=== PATIENT | male | born 2000 | race Caucasian/White ===

== ENCOUNTER 2021-12-29 20:27 | Observation (INO) ==
[2021-12-29 21:06] LABS: Basophils # (auto) 0.04 K/uL (0-0.2); Basophils % (auto) 0.3 %; Eosinophils # (auto) 0.04 K/uL (0-0.50); Eosinophils % (auto) 0.3 %; Hematocrit (blood only) 45.2 % (40.1-51.0); Hemoglobin 15.7 g/dl (14.0-18.0); Immature Granulocytes # (auto) 0.05 K/uL (0.00-0.02); Immature Granulocytes % (auto) 0.3 %; Lymphocytes # (auto) 2.24 K/uL (1.2-3.4); Lymphocytes % (auto) 14.2 %; Mean Corpuscular Hemoglobin 30.2 pg (25.0-34.0); Mean Corpuscular Hgb Conc 34.7 g/dL (32.0-36.0); Mean Corpuscular Volume 86.9 fL (80.0-100.0); Mean Platelet Volume 10.6 fL (9.4-12.4); Monocytes % (auto) 5.7 %; Neutrophils # (auto) 12.51 K/uL (1.4-6.5); Neutrophils % (auto) 79.2 %; Platelet Count 235 K/uL (130-400); RDW Coefficient of Variation 12.8 % (11.5-14.5); RDW Standard Deviation 40.6 fL (36.4-46.3); White Blood Count 15.78 K/ul (4.8-10.8)
[2021-12-29 21:32] LABS: Albumin Globulin Ratio 1.9 (0.9-2); Albumin Level 4.9 gm/dl (3.4-5.0); BUN Creatinine Ratio 13.2 (10-20); Bilirubin,Total 0.5 mg/dl (0.2-1.0); Calcium 9.8 mg/dl (8.5-10.1); Creatinine Clr Calc Pharmacy 129.3 ml/min; Est GFR (African American) 138.2 ml/min; Est GFR (Non-African American) 119.2 ml/min; Globulin 2.6 gm/dl (2.5-4.0); Potassium 3.5 mmol/L (3.5-5.1); Total Protein 7.5 gm/dl (6.0-8.3)
[2021-12-29 21:43] LABS: Appearance Urine Clear (Clear); Bilirubin Urine Negative (Negative); Blood Urine Negative (Negative); Color Urine Yellow; Glucose Urine UA Negative (Negative); Ketones Urine 2+ (Negative); Leukocyte Esterase Urine Negative (Negative); Nitrite Urine Negative (Negative); Protein Urine Negative (Negative); Specific Gravity Urine 1.025 (1.000-1.030); Urobilinogen Urine Negative (Negative); pH Urine 5.5 (4.5-7.5)
[2021-12-29] MEDS ORDERED: ONDANSETRON INJ 2 MG/ML 2 ML VIAL IV STA (22:57)
[2021-12-29] MEDS ORDERED: cefTRIAXone SODIUM 1,000 MG/50 ML BAG IV STA (22:57)
[2021-12-29] MEDS ORDERED: SODIUM CHLORIDE 0.9% 1000ML 1,000 ML IV ONE (22:57)
[2021-12-29] MEDS ORDERED: fentaNYL citrate 100 MCG/2 ML VIAL IV STA (22:57)
--- NOTE | 2021-12-29 23:01 | Emergency Department Note ---
History of Present Illness General Chief complaint: Abdominal Pain Stated complaint: ABDOM PAIN Time Seen by Provider: 12/29/21 22:50 History of Present Illness Maximum Pain Intensity: 8 21-year-old male presents emergency department with a 7-hour history of periumbilical abdominal pain now radiating to the right lower quadrant; patient rates the pain 5 out of 10 there is no flank pain there is no urinary symptoms there is no testicular pain. Patient denies fever anorexia. Patient denies any intra-abdominal surgeries. There are no other mitigating or alleviating factors. Home Medications Medication Instructions Recorded Confirmed Type Acetamin/Codeine (Tylenol 5 ml PO Q6H #200 mL 10/19/08 Rx W/Codeine 120/12MG 5ML *) None (Patient States No Home Meds) ##0 10/19/08 History Allergies Allergy/AdvReac Type Severity Reaction Status Date / Time No Known Allergies Allergy Unverified 12/29/21 23:06 Past Med/Surg History Social History Smoking Status: Never smoker Preferred Language: Hong Konger Feels Safe at Home: Yes Immunizations: Past medical history denies; past surgical history denies Review of Systems A total of 10 systems reviewed and were otherwise negative Constitutional: no fever Respiratory: no cough Gastrointestinal: + abdominal pain and + vomiting Genitourinary (Male): no dysuria Physical Exam Vital Signs Vital Signs - 24 hr 12/29/21 20:31 12/29/21 22:55 12/29/21 23:49 Temperature 36.3 C L Temperature Source Temporal Artery Scan Pulse Rate 81 Pulse Rate [Apical] 85 75 Respiratory Rate 18 18 18 Respiratory Effort / Characteristics Non-Labored Spontaneous Non-Labored Respiratory Depth Normal Normal Respiratory Pattern Regular Blood Pressure 133/80 Blood Pressure [Left Arm] 131/76 134/72 Blood Pressure Mean 97 Blood Pressure Mean [Left Arm] 94 92 Blood Pressure Position Sitting Pulse Oximetry 98 99 99 Oxygen Delivery Method Room Air Room Air Room Air Sepsis Recent Fever Within 48 Hours No Sepsis New/Unexplained Change in Mental Status N/A Sepsis Action Taken by Nursing No Action Required 12/30/21 00:35 Temperature Temperature Source Pulse Rate Pulse Rate [Apical] 78 Respiratory Rate 16 Respiratory Effort / Characteristics Non-Labored Respiratory Depth Respiratory Pattern Blood Pressure Blood Pressure [Left Arm] 120/68 Blood Pressure Mean Blood Pressure Mean [Left Arm] 85 Blood Pressure Position Pulse Oximetry 98 Oxygen Delivery Method Room Air Sepsis Recent Fever Within 48 Hours Sepsis New/Unexplained Change in Mental Status Sepsis Action Taken by Nursing VITAL SIGNS - Vital signs and nursing notes were reviewed. GENERAL - no acute distress. Communicates well with provider and answers questions appropriately. SKIN - Without rashes. HEAD - NC/AT. EYES - PERRL with EOMI bilaterally. Sclera anicteric. Palpebral conjunctiva pink and moist with no injection noted. EARS - No deformities of external structures noted on gross examination bilaterally. . NOSE - Midline and without cyanosis. No epistaxis or purulent drainage noted. Septum midline without deviation or septal hematoma noted. MOUTH/OROPHARYNX - Without perioral cyanosis. Buccal mucosa pink and moist NECK - Neck with FROM. Supple to palpation. LUNGS - Chest wall symmetric without accessory muscle use, intercostals retractions, or central cyanosis. Normal vesicular breath sounds CTA B/L. No w heezes, rales, or rhonchi appreciated. CARDIAC - RRR with S1/S2. No murmur, rubs, or gallops appreciated. ABDOMEN - Abdominal contour soft without pulsations or visible masses. BS normoactive all four quadrants. Tenderness right lower quadrant there is no rebound rigidity or guarding. EXTREMITIES - No clubbing or peripheral cyanosis. No pretibial edema present. +5/5 strength noted in UE/LE bilaterally. NEUROLOGIC - Cranial nerves II through XII grossly intact. PSYCH - A&Ox3 and cooperates fully with examiner. Pt is very pleasant and interacts well with examiner. Course Reevaluation(s) Reevaluation #1: Patient started on IV fluids IV pain medicine IV antibiotics. Patient complained of increased pain. Case will be discussed with the surgical team as the patient has early appendicitis Time: 00:44 Consultations Consultation #1: Surgery - CONNIE Amado Time: 00:45 Administered Medications Discontinued Medications Fentanyl Citrate (Fentanyl Citrate 100 Mcg/2 Ml Vial) 50 mcg IV NOW STA Stop: 12/29/21 22:58 Last Admin: 12/29/21 23:02 Dose: 50 mcg Documented By: CHARITO Fentanyl Citrate (Fentanyl Citrate 100 Mcg/2 Ml Vial) 50 mcg IV NOW STA Stop: 12/30/21 00:22 Last Admin: 12/30/21 00:36 Dose: 50 mcg Documented By: CHARITO Sodium Chloride (Nss 1000ml) 1,000 mls @ 999 mls/hr IV .Q1H1M ONE Stop: 12/29/21 23:57 Last Infusion: 12/30/21 00:04 Dose: 0 mls/hr Documented By: Admin: 12/29/21 23:02 Dose: 999 mls/hr Documented By: CHARITO Ceftriaxone Sodium (Rocephin) 1,000 mg in 50 mls @ 100 mls/hr IV NOW STA Stop: 12/29/21 23:26 Last Infusion: 12/30/21 00:20 Dose: 0 mls/hr Documented By: Admin: 12/29/21 23:50 Dose: 100 mls/hr Documented By: CHARITO Ioversol (Optiray 300 100ml) 100 ml IV ONCE ONE Stop: 12/29/21 23:48 Last Admin: 12/29/21 23:47 Dose: 100 ml Documented By: JENNY Ondansetron HCl (Ondansetron Inj 2 Mg/Ml 2 Ml Vial) 4 mg IV NOW STA Stop: 12/29/21 22:58 Last Admin: 12/29/21 23:02 Dose: 4 mg Documented By: CHARITO Medical Decision Making Medical Records Attestation: I reviewed the patient's medical records. Home Medications Current Medication List: was personally reviewed by me Laboratory Data Attestation: I reviewed the patient's lab results. Result diagrams: 12/29/21 20:55 12/29/21 20:55 Lab Results 12/29/21 12/29/21 12/29/21 Range/Units 20:55 20:55 20:55 WBC 15.78 H (4.8-10.8) K/ul RBC 5.20 (4.63-6.08) M/uL Hgb 15.7 (14.0-18.0) g/dl Hct 45.2 (40.1-51.0) % MCV 86.9 (80.0-100.0) fL MCH 30.2 (25.0-34.0) pg MCHC 34.7 (32.0-36.0) g/dL RDW Std Deviation 40.6 (36.4-46.3) fL RDW Coeff of Isha 12.8 (11.5-14.5) % Plt Count 235 (130-400) K/uL MPV 10.6 (9.4-12.4) fL Immature Gran % (Auto) 0.3 % Neut % (Auto) 79.2 % Lymph % (Auto) 14.2 % Price % (Auto) 5.7 % Eos % (Auto) 0.3 % Baso % (Auto) 0.3 % Neut # (Auto) 12.51 H (1.4-6.5) K/uL Lymph # (Auto) 2.24 (1.2-3.4) K/uL Price # (Auto) 0.90 H (0.24-0.82) K/uL Eos # (Auto) 0.04 (0-0.50) K/uL Baso # (Auto) 0.04 (0-0.2) K/uL Immature Gran # (Auto) 0.05 H (0.00-0.02) K/uL Sodium 139 (136-145) mmol/L Potassium 3.5 (3.5-5.1) mmol/L Chloride 104 (98-107) mmol/L Carbon Dioxide 23 (21-32) mmol/L Anion Gap 12 H (3-11) BUN 12 (6-23) mg/dl Creatinine 0.91 (0.6-1.4) mg/dl Est Cr Clr Drug Dosing 129.3 ml/min Est GFR ( Amer) 138.2 ml/min Est GFR (Non-Af Amer) 119.2 ml/min BUN/Creatinine Ratio 13.2 (10-20) Glucose 101 H (70-99(Fasting)) mg/dl Calcium 9.8 (8.5-10.1) mg/dl Total Bilirubin 0.5 (0.2-1.0) mg/dl AST 16 (13-39) U/L ALT 16 (7-52) U/L Alkaline Phosphatase 76 (34-104) U/L Total Protein 7.5 (6.0-8.3) gm/dl Albumin 4.9 (3.4-5.0) gm/dl Globulin 2.6 (2.5-4.0) gm/dl Albumin/Globulin Ratio 1.9 (0.9-2) Lipase 8 L (11-82) U/L Urine Color Yellow Urine Appearance Clear (Clear) Urine pH 5.5 (4.5-7.5) Ur Specific [place] 1.025 (1.000-1.030) Urine Protein Negative (Negative) Urine Glucose (UA) Negative (Negative) Urine Ketones 2+ H (Negative) Urine Blood Negative (Negative) Urine Nitrite Negative (Negative) Urine Bilirubin Negative (Negative) Urine Urobilinogen Negative (Negative) Ur Leukocyte Esterase Negative (Negative) Imaging Data Radiologist's Impression: * Patient: ANA BLACK (Male) : 89 Status: ER Date: 12/29/21 23:50 Room #: History: PAIN AT RLQ Slices: [id number] Priors: Tech: Adithya Streeter @ [phone] Exams: CT ABDOMEN & PELVIS With Contrast Contrast: IV Amt: 93 ML OPTIRAY 300 Accession Numbers: [id number] Referring Physician: REFERRED SELF Preliminary Findings Only See Final Report For Complete Findings CT ABDOMEN & PELVIS With Contrast: The appendix measures 10 mm with slight surrounding fat stranding consistent with mild early acute appendicitis. No signs of rupture or abscess. Bowel loops are otherwise un remarkable. The liver, gallbladder, pancreas, spleen, adrenal glands, and kidneys are unremarkable. Skeletal structures are normal. Radiologist: Frank Sesay MD Study ready at 23:58 and initial results transmitted at 00:40 Communications: Clear Time Type Notes Call Doctor Appen [id number] AM10 days left MDM Narrative Call decision making differential diagnosis includes appendicitis gastritis gastroenteritis colitis urinary tract infection. Plan is to check labs, CT, giv e IV fluids pain medicine antibiotics Impression & Plan Acute appendicitis Discharge Plan Visit Data Chief Complaint: Abdominal Pain Stated Complaint: ABDOM PAIN ED Provider: Harlan Holt Discharge Problem: Acute appendicitis Patient Disposition: Being Evaluated by Surgeon Forms Stand Alone Forms: [employer] Prescriptions Prescriptions: No Action None (Patient States No Home Meds) . Qty: 0 Acetamin/Codeine (Tylenol W/Codeine 120/12MG 5ML *) solution 5 ml PO Q6H Qty: 200 0RF Rx Instructions: PRN PAIN Referrals Referrals: PCP,NO [Physician] -
[2021-12-29] MEDS ORDERED: OPTIRAY 300 100mL IV ONE (23:47)
[2021-12-30] MEDS ORDERED: fentaNYL citrate 100 MCG/2 ML VIAL IV STA (00:21)
--- NOTE | 2021-12-30 00:57 | History & Physical Report ---
Date of Service December 30, 2021 Assessment & Plan (1) Acute appendicitis: Plan: Due to the patient's labs, imaging, clinical presentation we will proceed as follows: We will implement n.p.o. status Provide analgesics Provide antiemetics Provide hydration with IV fluids We will continue antibiotics in the form of cefoxitin We will tentatively plan for laparoscopic, possible open appendectomy Dr. Herrera on 12/30/2021. I discussed the procedure with the patient and expected postoperative course. Patient wishes to proceed. Additional recommendations be forthcoming based on operative findings and patient's postoperative course. Will use SCDs for DVT prevention, no chemical means due to planned surgery He will be a level 1 full code History of Present Illness Chief Complaint: Abdominal pain Primary Care Provider: Sunday Rodriguez MD This is a 21-year-old male who presented to the emergency department secondary to abdominal pain. Patient says that the pain began at approximate 5:00 PM on 12/29/2021 and was periumbilical. He notes that the pain is since shifted to the right lower quadrant. He has had associated nausea and vomiting. He denies any fevers. Patient notes that the pain does not radiate and he notes it is worse with certain movements and has been somewhat alleviated by medicines administered in the emergency department. Patient notes that he has never had any abdominal surgeries before and he denies any other health problems. In the emergency department patient had labs and imaging which independent reviewed. A CT scan of the abdomen pelvis showed that the appendix patient's appendix measured approximately 10 mm with some periappendiceal fat stranding concerning for acute appendicitis. There is no evidence of rupture or abscess. Labs included a CBC were white blood cell count was 15.7. Hemoglobin, hematocrit, platelet count were normal. Chemistry profile showed sodium, potassium, BUN, and creatinine were normal. There is no elevation of LFTs or lipase. Urinalysis was not indicative of infection. Patient has received a total of 100 mcg of fentanyl and Rocephin in the emergency department and has noted some improvement of his pain. Concerning other medical problems the patient denies any health problems. He also denies any prior surgeries. He denies any allergies to medicines. He is a non-smoker. At the time my exam he was in no distress. Allergies Allergy/AdvReac Type Severity Reaction Status Date / Time No Known Allergies Allergy Unverified 12/30/21 09:22 Home Medications Medication Instructions Recorded Confirmed Type Acetamin/Codeine (Tylenol 5 ml PO Q6H #200 mL 10/19/08 Rx W/Codeine 120/12MG 5ML *) None (Patient States No Home Meds) ##0 10/19/08 History Past Med/Surg History Surgical History (Updated 12/30/21 @ 09:24 by Dorcas Soares RN) History of arthroplasty of left ankle for "floppy foot and pain"- September 2021 [place] teeth extracted Social History Smoking Status: Never smoker Hx Alcohol Use: Yes Alcohol type: wine Hx Substance Use: No Preferred Language: Upper Sorbian Communication Ability: Effective Air Sampler Required: No Beliefs That Will Affect Care: None Current Living Situation: Family Other Information That Helps Us Care for You: No Feels Safe at Home: Yes Safety Concerns: Feels Safe At This Time Assistive Devices: Glasses Review of Systems Constitutional: no fever and no chills Eyes: no eye pain Ear, Nose, Mouth, Throat: no ear pain Respiratory: no cough and no dyspnea Cardiovascular: no chest pain Gastrointestinal: as per Subjective / HPI, + nausea and + vomiting Genitourinary: no dysuria Musculoskeletal: no back pain Integumentary: no rash Neurologic: no localized weakness Physical Exam Constitutional: WD/WN, vitals as above Eyes: no conjunctival abnormality ENMT: Ears: no hearing impairment and no external ear abnormality Mouth: no oropharynx abnormality Neck: trachea midline Respiratory: normal respiratory effort, lungs clear to auscultation Cardiovascular: Rate/Rhythm: regular rate and regular rhythm Gastrointestinal (Abdomen): Abdomen is soft and nondistended. There is no ri gidity noted. The patient did have pain with palpation greatest in the right lower quadrant McBurney's point with minor rebound. Rovsing sign was noted to be positive. Musculoskeletal: No calf tenderness Skin: no rashes Neurologic: moves all extremities Psychiatric: A+Ox3, euthymic affect Results & Data Results & Data ([facility]) Vital Signs (Past 12 Hours) Vital Signs Temp Pulse Pulse Resp BP BP Pulse Ox 12/30/21 00:35 78 16 120/68 98 12/29/21 23:49 75 18 134/72 99 08/31/22 22:55 85 18 131/76 99 12/29/21 20:31 36.3 C L 81 18 133/80 98 O2 Del Method 12/30/21 00:35 Room Air 12/29/21 23:49 Room Air 12/29/21 22:55 Room Air 12/29/21 20:31 Room Air Supervising Physician Co-Signing Physician Notes Patient seen and examined, labs and imaging reviewed, agree with above. 21-year-old male presented to the emergency department overnight with sudden onset abdominal pain that migrated to his right lower quadrant. Otherwise healthy, no prior abdominal surgeries. On exam he is afebrile with stable vital signs. He is tender to palpation in the right lower quadrant. WBC 15. CT revealed dilated, inflamed, nonperforated appendicitis. plan for laparoscopic appendectomy The risks of the procedure were discussed to include but not limited to bleeding, infection, conversion open, damage surrounding structures, need for future more extensive surgery, and the risk of anesthesia Likely discharge this afternoon Wound care instructions, activity restrictions, postoperative care, and return precautions given Follow-up in 2 weeks in general surgery PG Care Time/CCT Total # of Minutes Spent Total Time Spent with Patient: Total time spent is greater than 50% in coordination of care (as documented) at patient's floor/unit and/or counseling patient: Coding Level of Care Code INT OBSERVATION CARE 70M LVL 3 Diagnoses Acute appendicitis K35.80
[2021-12-30] MEDS ORDERED: MoRPHine SULFATE 4 MG/ML 1 ML CARP\\VIAL IV PRN (01:06)
[2021-12-30] MEDS ORDERED: ONDANSETRON INJ 2 MG/ML 2 ML VIAL IV PRN ×2 (01:06→09:40)
[2021-12-30] MEDS ORDERED: ACETAMINOPHEN 1,000 MG/100 ML VIAL IV PRN (01:06)
[2021-12-30] MEDS: LACTATED RINGER'S 1,000 ML IV SCH ×2 (01:25→12:44)
[2021-12-30] MEDS: cefOXitin 2,000 MG in DEXTROSE 5% 50 ML IV SCH ×2 (04:40→13:46)
--- NOTE | 2021-12-30 08:43 | CT Scan Report ---
CT SCAN OF THE ABDOMEN AND PELVIS WITH IV CONTRAST CLINICAL HISTORY: Right lower quadrant abdominal pain. COMPARISON STUDY: No priors. TECHNIQUE: Following the IV administration of 93 cc of Optiray 300, CT scan of the abdomen and pelvi s is performed from the lung bases to the proximal femora. Images are reviewed in the axial, sagittal , and coronal planes. IV contrast was administered without complication. A dose lowering technique wa s utilized adhering to the principles of ALARA. CT DOSE: 371.18 mGy.cm FINDINGS: Lung bases: The heart is normal in size and without pericardial effusion. The lung bases are clear. Liver: The contrast-enhanced liver is normal in size, contour, and attenuation. There is no intrahepa tic biliary ductal dilatation. The hepatic veins and portal veins are patent. Gallbladder: Unremarkable. Spleen: Normal in size and attenuation. Pancreas: Unremarkable. Adrenal glands: Unremarkable. Kidneys: The contrast enhanced kidneys are normal in size and without hydronephrosis. The kidneys enh ance symmetrically. Abdominal vasculature: The abdominal aorta is normal in course and caliber. Bowel: There is no bowel obstruction. Mild fecal retention is seen throughout the colon. The appendix is dilated and fluid-filled, measuring up to 1.0 cm in diameter as seen on image #325. The appendic eal wall is mildly thickened hyperemic and there is periappendiceal inflammation. Findings are consis tent with acute appendicitis. A calcified appendicolith is seen at the base of the appendix on image #285. There is no fluid collection suggest abscess. Peritoneum: There is no intraperitoneal free air or abdominal ascites. There is a small fat-containin g umbilical hernia. Lymphadenopathy: None. Pelvic viscera: The bladder, prostate, and seminal vesicles are normal as visualized. Skeletal structures: No lytic or blastic lesions are seen. IMPRESSION: Findings are consistent with acute appendicitis. There is no evidence of abscess or perf oration. ACT 112: Negative or not required by law. Electronically signed by: Miki Yu M.D. 12/30/2021 8:41 AM
[2021-12-30] MEDS ORDERED: MIDAZOLAM HCL 1 MG/ML 2ML VIAL ONE (09:12)
[2021-12-30] MEDS ORDERED: fentaNYL citrate 100 MCG/2 ML VIAL ONE (09:12)
[2021-12-30] MEDS ORDERED: ATROPINE SULFATE 0.1 MG/ML 10ML SYR IV PRN (09:40)
[2021-12-30] MEDS ORDERED: HYDROmorphone INJ 2 MG/ML SYR/VIAL IV PRN (09:40)
[2021-12-30] MEDS ORDERED: ePHEDrine sulfate 50 MG/ML AMP IV PRN (09:40)
[2021-12-30] MEDS ORDERED: fentaNYL citrate 100 MCG/2 ML VIAL IV PRN (09:40)
--- NOTE | 2021-12-30 09:40 | Anesthesiology Consultation ---
Date of Service December 30, 2021 Assessment & Plan ASA ASA1 Proposed Anesthesia Anesthesia Type: General Risk / Benefits Reviewed With: PT / POA / Parent / Guardian, Accepts Plan and Informed Consent Obtained History Surgery Operation Date: 12/30/21 08:05 Proposed Procedures p Laparoscopic Appendectomy - Harlan Herrera DO, FACS Height/Weight Height: 5 ft 7 in Weight: 80 kg Allergies Allergy/AdvReac Type Severity Reaction Status Date / Time No Known Allergies Allergy Unverified 12/30/21 09:22 Medications Home Medications Medication Instructions Recorded Confirmed Last Taken Acetamin/Codeine (Tylenol 5 ml PO Q6H #200 mL 10/19/08 Unknown W/Codeine 120/12MG 5ML *) None (Patient States No Home Meds) ##0 10/19/08 Unknown Active Medications Generic Name Dose Route Start Last Admin Trade Name Freq PRN Reason Stop Dose Admin Acetaminophen 1,000 mg in 100 mls @ 400 mls/hr 12/30/21 01:06 12/30/21 08:41 Ofirmev IV 01/02/22 01:05 Infused Q8H PRN Infusion pain Lactated Ringer's 1,000 mls @ 125 mls/hr 12/30/21 01:15 12/30/21 09:20 Lr IV 01/29/22 01:14 Infused .Q8H ROSA MARIA Infusion Cefoxitin Sodium 2,000 mg/ 60 mls @ 100 mls/hr 12/30/21 04:00 12/30/21 05:20 Dextrose IV 01/09/22 03:59 Infused Q6H ROSA MARIA Infusion NPO Date Last Intake of Fluids: 12/29/21 Time Last Intake of Fluids: 17:00 Date Last Intake of Solids: 12/29/21 Time Last Intake of Solids: 17:00 Exercise / Class Metabolic Activity II 4-5 Yardwork/Stairs/Walk up hill Past Surgical History Surgical History (Updated 12/30/21 @ 09:24 by Dorcas Soares RN) History of arthroplasty of left ankle for "floppy foot and pain"- September 2021 [place] teeth extracted Past Anesthesia History No Hx of Anesthesia Complications and No Family Hx of Anesthesia Complications History of PONV No Hx of PONV and No Hx of Motion Sickness Social History Smoking Status: Never smoker Hx Alcohol Use: Yes Alcohol type: wine alcohol intake frequency: holidays/special occasions only Hx Substance Use: No Review of Systems denies fever/cough/ colds/ chest pain/ SOB/ WALESKA denies WALESKA Physical Exam Vital Signs Last Vital Signs Temp 36.8 C 12/30/21 09:25 Pulse 77 12/30/21 09:25 Resp 18 12/30/21 09:25 BP 119/70 12/30/21 09:25 Pulse Ox 97 12/30/21 09:25 O2 Del Method 12/30/21 09:25 ENMT Mouth: no TMJ abnormality and no dentition abnormality Thyromental Distance: > or= 3.5 Finger Breadths Mallampati Class: II Neck neck extension not limited Respiratory normal respiratory effort; no respiratory distress Auscultation: lungs clear to auscultation bilaterally Cardiovascular Rate/Rhythm: regular rate and regular rhythm Neurologic moves all extremities Psychiatric Orientation: alert and oriented x 3 Testing Laboratory Results 12/29/21 20:55 12/29/21 20:55 Urine Color Yellow 12/29/21 20:55 Urine Appearance Clear (Clear) 12/29/21 20:55 Urine pH 5.5 (4.5-7.5) 12/29/21 20:55 Ur Specific [place] 1.025 (1.000-1.030) 12/29/21 20:55 Urine Protein Negative (Negative) 12/29/21 20:55 Urine Glucose (UA) Negative (Negative) 12/29/21 20:55 Urine Ketones 2+ (Negative) H 12/29/21 20:55 Urine Nitrite Negative (Negative) 12/29/21 20:55 Ur Leukocyte Esterase Negative (Negative) 12/29/21 20:55
[2021-12-30] MEDS ORDERED: BUPIVACAINE 0.5 % 5 MG/1 ML MPF 30ML VIAL ONE (10:11)
[2021-12-30] MEDS ORDERED: DEXAMETHASONE SOD INJ 4 MG/ML VIAL ONE (11:30)
[2021-12-30] MEDS ORDERED: ROCURONIUM BROMIDE 10 MG/ML 5 ML VIAL IV ONE (11:30)
[2021-12-30] MEDS ORDERED: KETOROLAC 30 MG/ML VIAL ONE (11:30)
[2021-12-30] MEDS ORDERED: ONDANSETRON INJ 2 MG/ML 2 ML VIAL ONE (11:30)
[2021-12-30] MEDS ORDERED: LIDOCAINE 2% MPF LOCAL 5 ML VIAL INFIL ONE (11:30)
[2021-12-30] MEDS ORDERED: PROPOFOL IV EMULSION 10 MG/ML 20 ML VIAL IV ONE (11:30)
--- NOTE | 2021-12-30 12:00 | Anesthesiology Progress Note ---
Date of Service December 30, 2021 Anesthesia Post Procedure Vital Signs Vital Signs: Temp Pulse Pulse Pulse Resp BP BP 12/30/21 11:55 79 12 120/71 12/30/21 11:45 87 19 125/77 12/30/21 11:35 36.0 C L 105 H 18 133/81 12/30/21 09:25 36.8 C 77 18 119/70 12/30/21 07:46 36.8 C 76 16 12/30/21 02:56 36.8 C 82 16 12/30/21 02:33 78 18 109/70 12/30/21 02:00 82 18 118/72 12/30/21 01:01 90 18 113/84 12/30/21 00:35 78 16 120/68 12/29/21 23:49 75 18 134/72 12/29/21 22:55 85 18 131/76 12/29/21 20:31 36.3 C L 81 18 133/80 BP Pulse Ox O2 Del Method O2 Flow Rate 12/30/21 11:55 96 Room Air 12/30/21 11:45 95 Oxymask 4 12/30/21 11:35 96 Oxymask 6 12/30/21 09:25 97 Room Air 12/30/21 07:46 103/64 96 Room Air 12/30/21 02:56 122/68 96 Room Air 12/30/21 02:33 97 Room Air 12/30/21 02:00 97 Room Air 12/30/21 01:01 98 Room Air 12/30/21 00:35 98 Room Air 12/29/21 23:49 99 Room Air 12/29/21 22:55 99 Room Air 12/29/21 20:31 98 Room Air Pain Intensity Right Abdomen: Pain Intensity: 5 Transfer of Care Handoff Completed per policy Notes Mental Status: alert / awake / arousable and participated in evaluation Patient Amnestic to Procedure: Yes Nausea / Vomiting: adequately controlled Pain: adequately controlled Airway Patency, RR, SpO2: stable & adequate BP & HR: stable & adequate Hydration State: stable & adequate Anesthetic Complications: no major complications apparent and Pt Satisfied with anesthetic care
[2021-12-30] MEDS ORDERED: oxyCODONE HCL IR 5 MG TAB (IMMEDIATE RELEASE) PO PRN ×2 (13:52)
[2021-12-30] MEDS ORDERED: LACTATED RINGER'S 1,000 ML IV SCH (13:52)
--- NOTE | 2022-01-06 15:02 | Discharge Summary ---
Date of Service January 06, 2022 Admission HPI Per Admitting Provider This is a 21-year-old male who presented to the emergency department secondary to abdominal pain. Patient says that the pain began at approximate 5:00 PM on 12/29/2021 and was periumbilical. He notes that the pain is since shifted to the right lower quadrant. He has had associated nausea and vomiting. He denies any fevers. Patient notes that the pain does not radiate and he notes it is worse with certain movements and has been somewhat alleviated by medicines administered in the emergency department. Patient notes that he has never had any abdominal surgeries before and he denies any other health problems. In the emergency department patient had labs and imaging which independent reviewed. A CT scan of the abdomen pelvis showed that the appendix patient's appendix measured approximately 10 mm with some periappendiceal fat stranding concerning for acute appendicitis. There is no evidence of rupture or abscess. Labs included a CBC were white blood cell count was 15.7. Hemoglobin, hematocrit, platelet count were normal. Chemistry profile showed sodium, potassium, BUN, and creatinine were normal. There is no elevation of LFTs or lipase. Urinalysis was not indicative of infection. Patient has received a total of 100 mcg of fentanyl and Rocephin in the emergency department and has noted some improvement of his pain. Concerning other medical problems the patient denies any health problems. He also denies any prior surgeries. He denies any allergies to medicines. He is a non-smoker. At the time my exam he was in no distress. Principal Diagnosis acute appendicitis Discharge Exam awake/alert Constitutional well developed and well nourished; no acute distress Gastrointestinal (Abdomen) Inspection/Auscultation: + abdominal surgical incision (c/d/i with skin glue); abdomen not distended Percussion/Palpation: + abdomen tender (expected nura incisional discomfort) and abdomen soft Discharge Data Allergies Allergy/AdvReac Type Severity Reaction Status Date / Time No Known Allergies Allergy Unverified 12/30/21 09:22 Consultations 12/30/21 00:45 ED Decision to Admit Stat Procedures Performed Operation Date: 12/30/21 08:05 Actual Procedures p Laparoscopic Appendectomy(Not Applicable) - Harlan Herrera DO, FACS Ordered Studies 12/29/21 23:19 CT abd pelvis IV con only Urgent Hospital Course (1) Acute appendicitis: This is a 21yM who presented to the [facility] ED in the late evening of 12/29/21 with complaints of abdominal pain. Workup in the ED showed a WBC of 15.[address] a/p concerning for acute appendicitis. The patient was tender to palpation in the RLQ. Patient made NPO with IVF and booked for the OR. On 12/30 the patient went to the OR with Dr. Herrera for a laparoscopic appendectomy. The patient tolerated the procedure well, see operative report for full details. Post operatively the patient's diet was advanced, pain managed on prn meds, and incisions clean/dry/intact. On POD#0 the patient was deemed stable for discharge to home. Total Time Total Time Spent Total Time Spent (In Minutes): 10 Discharge Plan Discharge Items Patient Disposition: Home - Self-Care Reason For Visit: APPY Discharge Diagnosis: laparoscopic appendectomy Activity: Per Instructions section Lifting: No more than 10 pounds Bathing Comment: may shower starting 12/31/21; no soaking in tubs/pools Exercise/Sports: Wait until after follow-up appointment Driving/Machine Use: no driving while taking any narcotics for pain Non-emergency contact: Surgeon Call non-emergency contact if: you have any medication questions, your pain is not controlled, your pain is worsening, you have a fever, your temperature is above 101.5, your wound has increased redness, your wound has increased drainage and your wound pain has increased Follow-up/Referrals: Harlan Herrera DO, FACS [Physician] - (Please call to schedule follow up in clinic within 2 weeks ) Sunday Rodriguez MD [Primary Care Provider] - Diet: Regular Addtl Attending Provider Instructions: Do not take the narcotic Percocet and Tylenol together as they both contain Acetaminophen. You should not exceed >3 grams of Acetaminophen within a 24 hour time period. If you do not take Percocet you may take Tylenol as per the manufacturers instructions You may also purchase Ibuprofen over the counter if needed for pain. Ibuprofen 200mg-600mg every 6-8 hours, as needed for pain over the next few days. Take with food Pending Studies at Discharge: Yes Studies:: surgical pathology Stand-Alone Forms: [employer] [address], Smoking Cessation Medications and DC Order Prescriptions: New oxycodone-acetaminophen [Percocet] 5-325 mg tablet 1 - 2 tab PO .q4-6h PRN (Reason: pain, for initial therapy, max 6 tabs per day) Qty: 12 0RF Continued None (Patient States No Home Meds) . Qty: 0 Discontinued Acetamin/Codeine (Tylenol W/Codeine 120/12MG 5ML *) solution 5 ml PO Q6H Qty: 200 0RF Rx Instructions: PRN PAIN Discharge Orders: Discharge Order (Routine); Ordered 12/30/21 Ordered By: Antonia Escalante Admission Data Admit Date/Time: 12/30/21 01:10 Attending Provider: Harlan Herrera Admit Provider: Harlan Herrera Primary Care Provider: Sunday Rodriguez Other Providers: Solomon Phelps Other Interventions: Discharge Summary Assessment (RN) Last Done: 12/30/21 14:52 Coding Level of Care Code D/C DAY MANAGEMENT <30 MINS Diagnoses Acute appendicitis K35.80
--- NOTE | 2022-01-12 10:14 | Operative Report ---
PG Post Operative Report Pre & Post Diagnosis Operation Date: 12/30/21 08:05 Pre-Op Diagnosis: appendicitis Post-Op Diagnosis: appendicitis I identified the patient and participated in the time-out.: Yes Procedure Operation Date: 12/30/21 08:05 Actual Procedures p Laparoscopic Appendectomy(Not Applicable) - Harlan Herrera DO, FACS Surgeon Harlan Herrera DO, FACS Slitter Processed Film Antonia Escalante Estimated Blood Loss 5 Findings Consistent with Post-Op Diagnosis Acute, nonperforated appendicitis Specimens Appendix Anesthesia Type General Complications none Disposition Accompanied Patient To Recovery: No Disposition: Recovery Room Indications 21-year-old male presented overnight with signs symptoms of acute appendicitis confirmed by CT scan, plan for laparoscopic appendectomy. The risks of the procedure were discussed, all questions were answered, and the patient agreed to proceed with surgery as planned. Description of Procedure This is a re-dictation of an operative report from 30 December 2021. The patient was properly identified, consented, and taken to the operating room where he was placed in the supine position. General endotracheal anesthesia was induced. SCDs and a safety belt were placed. Preoperative antibiotics were administered. A Singleton catheter was not placed. The patient's abdomen was prepped and draped in the standard sterile fashion. Surgical timeout was performed and all parties were in agreement that this was the correct patient and procedure to be performed and we continued as planned. A curvilinear infraumbilical incision was made with electrocautery and deepened down to the fascia with blunt dissection. The base of the umbilicus was grasped with a Helio and elevated towards the ceiling. An incision was made in the midline fascia with a knife and entry into the peritoneum was confirmed. Stay suture of 0 Vicryl was placed and a Linton trocar was inserted. The abdomen was insufflated with carbon dioxide which the patient tolerated without incident. The laparoscope was inserted and no damage from initial trocar placement was noted, no gross abnormalities were noted within the 4 quadrants the abdomen. 5 mm ports were then placed in the left lower quadrant with care not to damage the epigastric vessels, and in the suprapubic midline with care not to damage the bladder. The patient was placed in Trendelenburg position and rotated towards the left. The small bowel was swept away from the right lower quadrant. The cecum was grasped with an atraumatic grasper exposing the appendix. The appendix was moderately inflamed and there was no evidence of perforation. There was no fluid in the pelvis. A window was created between the base of the appendix and the mesoappendix. A monroe loaded endoscopic stapler was then used to divide the appendix at its base. A monroe load was then used to divide the mesoappendix. Hemostasis was good. The appendix was placed in an Endo Catch bag and removed through the umbilical port site. The right lower quadrant and pelvis was irrigated and hemostasis was found to be good. 5 mm trochars were removed under direct visualization and the abdomen was allowed to collapse. The umbilical port site fascia was closed with 0 Vicryl suture. The wound was irrigated, and the skin of all ports was closed with 4-0 Monocryl subcuticular sutures. Dermabond was placed over the wounds. The patient was extubated in the operating room and taken to the PACU where he recovered without apparent incident. All sponge, instrument and needle counts were correct at the conclusion of the procedure. The patient tolerated the procedure well. The physician's clinical assistant was present and scrubbed for the entire the case. She was critical in positioning the patient, prepping and draping, retraction and exposure, driving the laparoscope, closure the incisions, placement of the dressings. I attest to the content of the Intraoperative Record and any orders documented therein. Any exceptions are noted below.
== END 2021-12-30 15:51 | disposition home or self-care (01) ==
LOC: 3E 20:27 → ED 20:27 → 3E 12-30 02:33
DX: K35.80 Unspecified acute appendicitis